=== PATIENT | female | born 1975 | race Caucasian/White ===

== ENCOUNTER 2016-07-25 03:30 | Emergency (ER) | payer BC, MEDICAID ==
[~2016-07-25] VITALS: Ht 162.6 cm; Wt 81.0 kg
[2016-07-25 03:39] VITALS: Ht 162.6 cm; Wt 81.0 kg
[2016-07-25] MEDS ORDERED: SOD CHLORIDE 0.9% 1,000 ML IV STA (03:44)
[2016-07-25 04:22] LABS: ADD SCAN DIFF NO
--- NOTE | 2016-07-25 04:35 | RADRPT ---
PROCEDURE: Obstetrical ultrasound, limited. CLINICAL INDICATION: Pelvic pain. TECHNIQUE: Multiple sonographic images of the pelvis were obtained using transabdominal technique . Images were obtained with monaco scale and color Doppler. The images were reviewed on a PACS works tation. COMPARISON: No prior studies are available for comparison. FINDINGS: There is a single living intrauterine gestation with the fetus in a breech and variable presentation . heart tones of 166 beats per minute are identified. The placenta is anterior in location, grade 0. There is normal amniotic fluid volume with the maximum vertical pocket measuring 3.1 cm. There is no evidence of placenta previa or abruption. Measurements were made in order to determine age. The results are as follows: BPD =2.28 cm HC =8.63 cm AC =6.76 cm FL =0.99 cm. Estimated gestational age of approximately 13 weeks and 4 days. The estimated date of delivery is 01/26/2017. The EFW = 72 +/- 11 grams. Estimated weight percentage equals 18.1%. IMPRESSION: Single viable intrauterine gestation of approximately 13 weeks and 4 days, with an ultrasound TORREY of 01/26/2017. .Adal Armendariz MD, MD Date Time Electronically viewed and signed by .Adal Armendariz MD, MD on 07/25/2016 04:34 .T/
[2016-07-25 04:36] LABS: BASOPHILS % 0.2 % (0.0-2.0); EOSINOPHILS # 0.2 10^3/ul (0.0-0.5); EOSINOPHILS % 1.1 % (0.0-7.0); HEMATOCRIT 40.5 % (37.0-47.0); HEMOGLOBIN 13.9 g/dl (12.0-16.0); LYMPHOCYTES # 0.8 10^3/ul (0.8-2.9); LYMPHOCYTES % 4.7 % (15.0-51.0); MEAN CORPUSCULAR HEMOGLOBIN 31.2 pg (29.0-33.0); MEAN CORPUSCULAR HGB CONC 34.3 g/dl (32.0-37.0); MEAN PLATELET VOLUME 11.1 fl (7.4-10.4); MONOCYTE # 1.1 10^3/ul (0.3-0.9); MONOCYTES % 6.7 % (0.0-11.0); NEUTROPHILS % 86.8 % (39.0-77.0); PLATELET COUNT 206 10^3/UL (140-415); RED BLOOD COUNT 4.45 10^6/ul (4.20-5.40); RED CELL DISTRIBUTION WIDTH 12.7 % (11.5-14.5); WHITE BLOOD COUNT 16.2 10^3/ul (4.8-10.8)
[2016-07-25 04:37] LABS: ALBUMIN 3.9 g/dl (3.3-4.9)
[2016-07-25 04:38] LABS: ADD UMIC YES; POTASSIUM 3.8 mmol/L (3.5-5.1); URINE BILIRUBIN (Dip) NEGATIVE (NEGATIVE); URINE BLOOD (Dip) TRACE (NEGATIVE); URINE COLOR LT. YELLOW (YELLOW); URINE GLUCOSE (Dip) NEGATIVE (NEGATIVE); URINE KETONES (Dip) TRACE (NEGATIVE); URINE LEUKOCYTE ESTERASE (Dip) TRACE (NEGATIVE); URINE NITRITE (Dip) POSITIVE (NEGATIVE); URINE TOTAL PROTEIN (Dip) NEGATIVE (NEGATIVE); URINE UROBILINOGEN (Dip) 0.2 E.U./dL (0.1-1.0)
[2016-07-25 04:40] LABS: BILIRUBIN,INDIRECT 0.4 mg/dl (0-1.1); BILIRUBIN,TOTAL 0.4 mg/dl (0.2-1.3); CREATININE 0.48 mg/dl (0.44-1.00)
[2016-07-25 04:41] LABS: ALBUMIN/GLOBULIN RATIO 1.3; CALCIUM 8.7 mg/dl (8.4-10.2); TOTAL PROTEIN 6.9 g/dl (6.1-8.1)
[2016-07-25 04:55] LABS: BACTERIA,URINE MANY; SQUAMOUS EPITHELIAL CELL,UR MANY; URINE RBCS 0-2 /HPF (0)
[2016-07-25 05:39] VITALS: BP 96/58; PULSE 94; RESP 18
--- NOTE | 2016-07-25 05:39 | ERD ---
ER Documentation Chief Complaint Date/Time DATE: 07/25/16 TIME: 05:38 Chief Complaint pt c/o diarrhea and stomach pain all night. Pt 12 weeks HPI This is a 41-year-old female comes in with diarrhea and some pain only. Patient says she is 12 weeks . She denies any fevers or chills. 2-3 episodes of diarrhea which are nonbloody. Abdominal pain is diffuse in location with no exacerbating or alleviating factors mild to moderate intensity. No fevers no chills no trauma. No other current complaints. No chest pain. No shortness of breath. No other current concerns ROS All systems reviewed and are negative except as per history of present illness. PMhx/Soc Medical and Surgical Hx: pt denies Medical Hx, pt denies Surgical Hx Hx Alcohol Use: No Hx Substance Use: No Hx Tobacco Use: No Smoking Status: Never smoker Physical Exam Vitals Vital Signs Date Time Temp Pulse Resp B/P Pulse Ox O2 Delivery O2 Flow Rate FiO2 07/25/16 03:39 99.1 112 20 120/74 97 Physical Exam Const: [] Head: Atraumatic Eyes: Normal Conjunctiva ENT: Normal External Ears, Nose and Mouth. Neck: Full range of motion..~ No meningismus. Resp: Clear to auscultation bilaterally Cardio: Regular rate and rhythm, no murmurs Abd: Soft, non tender, non distended. Normal bowel sounds Skin: No petechiae or rashes Back: No midline or flank tenderness Ext: No cyanosis, or edema Neur: Awake and alert Psych: Normal Mood and Affect Result Diagram: 07/25/16 0400 07/25/16 0400 Results 24 hrs Laboratory Tests Test 07/25/16 04:00 White Blood Count 16.210^3/ul Red Blood Count 4.4510^6/ul Hemoglobin 13.9g/dl Hematocrit 40.5% Mean Corpuscular Volume 91.0fl Mean Corpuscular Hemoglobin 31.2pg Mean Corpuscular Hemoglobin Concent 34.3g/dl Red Cell Distribution Width 12.7% Platelet Count 62682^3/UL Mean Platelet Volume 11.1fl Neutrophils % 86.8% Lymphocytes % 4.7% Monocytes % 6.7% Eosinophils % 1.1% Basophils % 0.2% Nucleated Red Blood Cells % 0.0/100WBC Neutrophils # 14.010^3/ul Lymphocytes # 0.810^3/ul Monocytes # 1.110^3/ul Eosinophils # 0.210^3/ul Basophils # 0.010^3/ul Nucleated Red Blood Cells # 0.010^3/ul Urine Color LT. YELLOW Urine Clarity CLOUDY Urine pH 6.0 Urine Specific [place] 1.020 Urine Ketones TRACE Urine Nitrite POSITIVE Urine Bilirubin NEGATIVE Urine Urobilinogen 0.2 E.U./dL Urine Leukocyte Esterase TRACE Urine Microscopic RBC 0-2/HPF Urine Microscopic WBC 2-5/HPF Urine Squamous Epithelial Cells MANY Urine Bacteria MANY Urine Hemoglobin TRACE Urine Glucose NEGATIVE% Urine Total Protein NEGATIVE Sodium Level 136mmol/L Potassium Level 3.8mmol/L Chloride Level 106mmol/L Carbon Dioxide Level 20mmol/L Anion Gap 14 Blood Urea Nitrogen 9mg/dl Creatinine 0.48mg/dl Glucose Level 146mg/dl Calcium Level 8.7mg/dl Total Bilirubin 0.4mg/dl Direct Bilirubin 0.00mg/dl Indirect Bilirubin 0.4mg/dl Aspartate Amino Transf (AST/SGOT) 16IU/L Alanine Aminotransferase (ALT/SGPT) 24IU/L Alkaline Phosphatase 48IU/L Total Protein 6.9g/dl Albumin 3.9g/dl Globulin 3.00g/dl Albumin/Globulin Ratio 1.30 Current Medications Medications (Trade) Dose Ordered Sig/Sheila Route PRN Reason Start Time Stop Time Status Last Admin Dose Admin Sodium Chloride (NS) 1,000 ml @ 1,000 mls/hr Q1H STAT IV 07/25/16 03:44 07/25/16 04:43 DC 07/25/16 04:36 Procedures/MDM Medical decision-making: Patient has evidence of UTI. At this point clinically stable. Patient hydrated. Patient be discharged with Keflex. Abdominal pain is completely resolved. Patient to follow-up in 8 hours for serial abdominal exams. Departure Diagnosis: Primary Impression: Abdominal pain Abdominal location: unspecified location Qualified Code: R10.9 - Abdominal pain, unspecified location Condition: Stable ALVARO ALBERTS Jul 25, 2016 05:39
[2016-07-25] MEDS ORDERED: CEPH-443 PO (05:42)
== END 2016-07-25 06:00 | disposition home or self-care (01) ==
LOC: E/R 03:30
DX: O26.891 Other specified pregnancy related conditions, first trimester (principal); R10.84 Generalized abdominal pain; R10.2 Pelvic and perineal pain; Z3A.13 13 weeks gestation of pregnancy
CPT/HCPCS: 36415; 76801; 80053; 81001; 84702; 85025; 86900; 86901; J7030; Z7502; 81003

== ENCOUNTER 2016-12-28 04:30 | Inpatient (IN) | payer MEDICAID, OTHER ==
[~2016-12-28] VITALS: Ht 157.5 cm; Wt 90.1 kg
[~2016-12-28 04:30] MED LIST: CEPH-443 PO
[2016-12-28 04:55] VITALS: BP 120/71; PULSE 88; RESP 18
[2016-12-28] MEDS ORDERED: PRENAT PO (04:58)
[2016-12-28 05:22] LABS: ADD UMIC YES; UR ASCORBIC ACID 20 mg/dL (NEGATIVE); UR BACTERIA FEW /HPF (NONE SEEN); UR BILIRUBIN (Dip) NEGATIVE (NEGATIVE); UR BLOOD (Dip) 1+ mg/dL (NEGATIVE); UR CLARITY CLOUDY (CLEAR); UR COLOR YELLOW (YELLOW); UR GLUCOSE (Dip) NEGATIVE (NEGATIVE); UR KETONES (Dip) NEGATIVE (NEGATIVE); UR LEUKOCYTE ESTERASE (Dip) 1+ Leu/ul (NEGATIVE); UR MUCUS FEW /HPF (NONE SEEN); UR NITRITE (Dip) POSITIVE (NEGATIVE); UR RBC 2 /HPF (0-5); UR SPECIFIC GRAVITY (Dip) 1.014 (1.003-1.030); UR SQUAMOUS EPITHELIAL CELL MODERATE /HPF (FEW); UR TOTAL PROTEIN (Dip) NEGATIVE (NEGATIVE); UR UROBILINOGEN (Dip) NEGATIVE (NEGATIVE)
[2016-12-28] MEDS ORDERED: MISOPROSTOL 200 MCG TAB PR PRN ×2 (06:30→17:00)
[2016-12-28] MEDS ORDERED: LIDOCAINE 1% (MPF) 30 ML INJ INJ PRN (06:30)
[2016-12-28] MEDS ORDERED: METHYLERGONOVINE 0.2 MG INJ IM PRN ×2 (06:30→17:00)
[2016-12-28] MEDS ORDERED: MINERAL OIL LIGHT 10 ML VIAL TOP ONE (06:30)
[2016-12-28] MEDS ORDERED: AMPICILLIN 2 GM/NS (PMX) 100 ML IV ONE (06:30)
[2016-12-28] MEDS ORDERED: BUTORPHANOL 2 MG INJ IV PRN (06:30)
[2016-12-28] MEDS ORDERED: OXYTOCIN 30 UNITS/LR 500 ML IV PRN ×2 (06:30→17:00)
[2016-12-28] MEDS ORDERED: IBUPROFEN 600 MG TAB PO PRN ×2 (06:30→17:00)
[2016-12-28] MEDS ORDERED: LACTATED RINGER'S 1,000 ML IV ONE (06:30)
[2016-12-28] MEDS ORDERED: BETAMET NA PHOS/AC(6 MG/ML) 5ML INJ IM ONE (06:30)
[2016-12-28] MEDS ORDERED: CARBOPROST 250 MCG INJ IM PRN ×2 (06:30→17:00)
[2016-12-28] MEDS ORDERED: OXYTOCIN 30 UNITS/LR 500 ML IV SCH ×2 (06:30)
--- NOTE | 2016-12-28 06:31 | TRIAGE ---
OB Triage Datetime Report Generated by CPN: 12/28/2016 06:31 Datetime: 12/28/2016 05:57 Vaginal Exam Dilatation (cms): 3.0 Effacement (%): 70 Station: -3 Exam By: MJAROCHO Membrane Status: Intact Datetime: 12/28/2016 04:51 Time of Arrival: 12/28/2016 06:20 EGA: 35.0 Arrived By: Wheelchair Arrived From: TRIAGE Chief Complaint: w/ c/o spotting at 0320 Movement: Present Contractions: Denies/Absent Rupture of Membranes: Denies Vaginal Bleeding: Small Vaginal Discharge: Denies Recent Sexual Intercouse: Denies Abdominal Trauma: Not Applicable Patient Complaints: Other Time Provider Notified: 12/28/2016 06:05 Provider Notified: Dr Márquez Initial Plan: EFM, UA Datetime: 12/28/2016 04:39 Stage of : OB Triage Maternal Assessment Level of Consciousness: Fully Conscious Headache: Temporal Blurred Vision: No Respiratory Effort: Unlabored Nausea/Vomiting: Denies RUQ Epigastric Pain: Denies Facial Edema: None Labor Evaluation Frequency: placed Monitor Mode: External Resting Tone Frazer: Relaxed Heart Rate FHR Baseline Rate: 130 Monitor Mode: External US Pain Assessment Pain Scale: 0 Pain Presence: None/Denies Pain Type: N/A
[2016-12-28] MEDS: LACTATED RINGER'S 1,000 ML IV SCH ×2 (07:00→08:10)
[2016-12-28 07:05] LABS: BASOPHILS % 0.2 % (0.0-2.0); EOSINOPHILS # 0.2 10^3/ul (0.0-0.5); EOSINOPHILS % 1.7 % (0.0-7.0); HEMATOCRIT 40.2 % (37.0-47.0); HEMOGLOBIN 13.7 g/dl (12.0-16.0); LYMPHOCYTES # 1.4 10^3/ul (0.8-2.9); LYMPHOCYTES % 13.1 % (15.0-51.0); MEAN CORPUSCULAR HEMOGLOBIN 30.9 pg (29.0-33.0); MEAN CORPUSCULAR HGB CONC 34.1 g/dl (32.0-37.0); MEAN CORPUSCULAR VOLUME 90.5 fl (82.0-101.0); MEAN PLATELET VOLUME 10.8 fl (7.4-10.4); MONOCYTE # 0.8 10^3/ul (0.3-0.9); MONOCYTES % 7.1 % (0.0-11.0); NEUTROPHILS % 77.1 % (39.0-77.0); PLATELET COUNT 202 10^3/UL (140-415); RED BLOOD COUNT 4.44 10^6/ul (4.20-5.40); RED CELL DISTRIBUTION WIDTH 13.6 % (11.5-14.5); WHITE BLOOD COUNT 10.9 10^3/ul (4.8-10.8)
[2016-12-28 07:28] LABS: INR 0.91; PROTIME 12.3 Sec (12.2-14.2)
[2016-12-28 07:29] LABS: PARTIAL THROMBOPLASTIN TIME 27.6 Sec (25.0-35.0)
--- NOTE | 2016-12-28 07:38 | RADRPT ---
PROCEDURE: US OB. CLINICAL INDICATION: Size and dates , PTL TECHNIQUE: Multiple sonographic images of the pelvis and gravid uterus were obtained. The images were reviewed on a PACS workstation. COMPARISON: No prior studies are available for comparison. FINDINGS: There is a single viable intrauterine gestation. Cardiac activity is present with 131 beats per min salome. There is a vertex presentation. The placenta is anterior. There is no evidence for an abruption or placenta previa. There is a normal amount of amniotic fluid with an HEIDY = 17.1 cm. Measurements were made in order to determine age. The results are as follows: BPD =8.7 cm HC =30.6 cm AC =32.1 cm FL =6.8 cm Estimated gestational age of approximately 35 weeks and 0 days based on ultrasound measurements. Clinical age: 35 weeks and 0 days. The estimated date of delivery is 02/01/2017, based on ultrasound measurements. The EFW = 2671 g, 59%, based on LMP age. RPTAT: AA IMPRESSION: Single viable intrauterine gestation of approximately 35 weeks and 0 days based on ultrasound measu rements. .Hang Madrid MD, MD Date Time Electronically viewed and signed by .Hang Madrid MD, on 12/28/2016 07:37 .S/
[2016-12-28] MEDS ORDERED: LACTATED RINGER'S 1,000 ML IV PRN (08:00)
[2016-12-28] MEDS ORDERED: AMPICILLIN 1 GM/NS (PMX) 50 ML IV SCH (10:30)
--- NOTE | 2016-12-28 15:55 | LDN ---
Date/Time of Note Date/Time of Note DATE: 12/28/16 TIME: 15:51 Delivery Summary December 28, 2016 This patient is a 41 years old 5 para 4 with estimated date of confinement of 02/11/2017 which makes her 35 weeks . She came in the labor and delivery . She progressed to complete dilatation and had an spontaneous vaginal delivery today December 28, 2016 at 12:35 PM. The was made with score of 8 in 1 minute 9 in 5 minutes.. The weight of the baby was 6 pounds and 1 ounces. It was male, Estimated blood loss was 150 cc. A first-degree laceration was repaired with 3-0 chromic catgut. Placenta Delivered: Spontaneously Meconium: none Episiotomy: No Perineal laceration: 1 Anesthesia type: None Estimated blood loss: 150 Sponge & Needle done & correct: Yes All needle counts correct: Yes Any foreign bodies felt in the: No Problems: Infant Delivery Information Sex Sex: male Apgars 1 Minute: 8 5 Minute: 9 Suctioning Nose & mouth suctioned at anupama: Yes Delee suction performed: No Umbilical Cord Umbilical cord with: 3 Vessels Cord presentations: no nuchal cord Cord Blood was obtained: Yes Mother & Baby Disposition Disposition Mom & Baby to Maternity; Good: Yes Mom transferred to: Med/Surg RADHA BETANCUR MD Dec 28, 2016 15:55
[2016-12-28 16:00] VITALS: BP 110/72; PULSE 95; RESP 19
[2016-12-28] MEDS ORDERED: DIBUCAINE 1% 30 GM OINT PR PRN (17:00)
[2016-12-28] MEDS ORDERED: SENNA/DOCUSATE NA (8.6MG/50MG) TAB PO PRN (17:00)
[2016-12-28] MEDS ORDERED: ACETAMINOPHEN 500 MG TAB PO PRN (17:00)
[2016-12-28] MEDS ORDERED: LANOLIN 7 GM TUBE TOP PRN (17:00)
[2016-12-28] MEDS ORDERED: WITCH HAZEL/GLYCERIN PAD PR PRN (17:00)
[2016-12-28] MEDS ORDERED: OXYCODONE/ASPIRIN (4.88/325) TAB PO PRN ×2 (17:00)
[2016-12-28] MEDS ORDERED: BENZOCAINE 20% 56 ML SPRAY TOP PRN (17:00)
[2016-12-28] MEDS: OXYTOCIN 30 UNITS/LR 500 ML IV SCH (17:32)
[2016-12-28 19:45] VITALS: BP 115/63; PULSE 100; RESP 19
[2016-12-29 00:30] VITALS: BP 88/60; PULSE 94; RESP 18
[2016-12-29] MEDS: OXYTOCIN 30 UNITS/LR 500 ML IV SCH ×6 (03:53→20:36)
[2016-12-29 04:00] VITALS: BP 98/56; PULSE 84; RESP 17
[2016-12-29] MEDS ORDERED: BETAMET NA PHOS/AC(6 MG/ML) 5ML INJ IM ONE (07:06)
[2016-12-29 08:25] VITALS: BP 103/60; PULSE 90; RESP 14
[2016-12-29 09:31] LABS: BASOPHILS % 0.1 % (0.0-2.0); EOSINOPHILS # 0.1 10^3/ul (0.0-0.5); EOSINOPHILS % 0.6 % (0.0-7.0); HEMATOCRIT 38.6 % (37.0-47.0); HEMOGLOBIN 12.7 g/dl (12.0-16.0); LYMPHOCYTES # 1.8 10^3/ul (0.8-2.9); MEAN CORPUSCULAR HEMOGLOBIN 30.1 pg (29.0-33.0); MEAN CORPUSCULAR HGB CONC 32.9 g/dl (32.0-37.0); MEAN CORPUSCULAR VOLUME 91.5 fl (82.0-101.0); MEAN PLATELET VOLUME 11.1 fl (7.4-10.4); MONOCYTE # 1.1 10^3/ul (0.3-0.9); MONOCYTES % 6.8 % (0.0-11.0); NEUTROPHILS % 80.1 % (39.0-77.0); PLATELET COUNT 197 10^3/UL (140-415); RED BLOOD COUNT 4.22 10^6/ul (4.20-5.40); WHITE BLOOD COUNT 15.9 10^3/ul (4.8-10.8)
[2016-12-29 16:47] VITALS: BP 100/62; PULSE 87; RESP 14
[2016-12-29 20:00] VITALS: BP 99/62; PULSE 89; RESP 18
[2016-12-30] MEDS: OXYTOCIN 30 UNITS/LR 500 ML IV SCH ×4 (00:36→12:36)
[2016-12-30 04:00] VITALS: BP 106/60; PULSE 84; RESP 18
[2016-12-30 08:00] VITALS: BP 90/54; PULSE 54; RESP 16
[2016-12-30 08:18] LABS: BASOPHILS % 0.3 % (0.0-2.0); EOSINOPHILS # 0.2 10^3/ul (0.0-0.5); EOSINOPHILS % 1.7 % (0.0-7.0); HEMATOCRIT 36.6 % (37.0-47.0); HEMOGLOBIN 11.9 g/dl (12.0-16.0); LYMPHOCYTES % 17.5 % (15.0-51.0); MEAN CORPUSCULAR HEMOGLOBIN 30.4 pg (29.0-33.0); MEAN CORPUSCULAR HGB CONC 32.5 g/dl (32.0-37.0); MEAN CORPUSCULAR VOLUME 93.4 fl (82.0-101.0); MONOCYTE # 0.8 10^3/ul (0.3-0.9); MONOCYTES % 7.2 % (0.0-11.0); NEUTROPHILS % 72.2 % (39.0-77.0); PLATELET COUNT 187 10^3/UL (140-415); RED BLOOD COUNT 3.92 10^6/ul (4.20-5.40); RED CELL DISTRIBUTION WIDTH 13.9 % (11.5-14.5); WHITE BLOOD COUNT 11.3 10^3/ul (4.8-10.8)
[2016-12-30] MEDS ORDERED: DIPHTH/TET/ACEL PERTUSS (ADULT) 0.5 ML VIAL IM* ONE (09:00)
[2016-12-30 16:00] VITALS: BP 109/66; PULSE 94; RESP 16
--- NOTE | 2016-12-31 10:19 | PREOPHP ---
DATE OF ADMISSION: 12/28/2016 HISTORY OF PRESENT ILLNESS: This is a 41-year-old lady, 5, para 4, EDC 01/29/2017, at 35 and 3/7 weeks, admitted to rule out labor. She had care in my office and the care was uneventful. She started to have mild irregular contractions. PAST MEDICAL HISTORY: No history of diabetes, TB, asthma. ALLERGIES: NO ALLERGY. SOCIAL HISTORY: Patient does not smoke. She does not drink. MEDICATIONS: She does not take any drugs except her iron and vitamins. 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 She is 5, para 4. Her first delivery was 1990 second 1992, third 1995, last 2004, all normal deliveries. REVIEW OF SYSTEMS: CARDIOVASCULAR: No chest pain. LUNGS: No cough. GASTROINTESTINAL: No diarrhea, no vomiting. GENITOURINARY: No dysuria. PHYSICAL EXAMINATION: GENERAL: She is conscious coherent lady, and in no acute distress. VITAL SIGNS: Her blood pressure 120/80, pulse rate 80 per minute, respirations 16 per minute. BREASTS: Within normal limits. HEENT: Within normal limits. LUNGS: Within normal limits. ABDOMEN: Soft. No tenderness noted. Fundic height 36 cm. heart tones 140 per minute. PELVIC: Pelvic exam done by nurse revealed the cervix to be 1 cm dilated, thick, station -2, in cephalic presentation with a bag of water intact. EXTREMITIES: No pedal edema. ADMITTING DIAGNOSES: 35 and 3/7 weeks intrauterine . Rule out labor. The patient was given IV hydration and observed in the hospital. The patient complained of moderate contractions, so the patient was rechecked and she was completely dilated, and wanted to push. Dr. Watkins was requested to attend the delivery and history was given to him. The plans were explained to the patient. She understood everything totally. The risks, benefits, and alternatives were discussed with her as well. Dictated By: Cristela Márquez MD /carlos/robert /Document#: [id number]
== END 2016-12-30 18:38 | disposition home or self-care (01) | DRG 775 ==
LOC: L-D 04:30 → OBT 04:30 → L-D 06:05 → OBT 06:05 → L-D 12:08 → PP1 16:34
PROVIDERS: ADMIT Obstetrics & Gynecology; ATTEND Obstetrics & Gynecology
PROC: 10E0XZZ Delivery of Products of Conception, External Approach (ICD-10-PCS; principal; 2016-12-28)
PROC: 0HQ9XZZ Repair Perineum Skin, External Approach (ICD-10-PCS; 2016-12-28)
PROC: 3E033VJ Introduction of Other Hormone into Peripheral Vein, Percutaneous Approach (ICD-10-PCS; 2016-12-28)
DX: O60.14X0 Preterm labor third trimester with preterm delivery third trimester, not applicable or unspecified (principal); O70.0 First degree perineal laceration during delivery; Z3A.35 35 weeks gestation of pregnancy; Z37.0 Single live birth
CPT/HCPCS: 76815; 81001; 85025; 85610; 85730; 86592; 86900; 86901; 87340; 88307; 90715; 99464; G0463; J0290; J0702; J2590; J7120